=== PATIENT | male | born 1995 | race Caucasian/White ===

== ENCOUNTER 2023-07-21 05:28 | Emergency (ER) | payer BC ==
[~2023-07-21] VITALS: Ht 182.9 cm; Wt 84.0 kg
[2023-07-21 05:45] VITALS: PULSE 107
[2023-07-21 05:47] VITALS: BP 131/78; RESP 18; TEMP 97.6; O2SAT 100
[2023-07-21] MEDS ORDERED: GUAI600T26 MT (09:57)
[2023-07-21] MEDS ORDERED: IBUP-2029 MT (09:57)
[2023-07-21] MEDS ORDERED: BECL10.6 INH (09:57)
[2023-07-21] MEDS: IBUPROFEN 800MG TABLET PO ONE (10:17)
== END 2023-07-21 10:22 | disposition home or self-care (01) ==
LOC: ER 05:28
DX: J02.9 Acute pharyngitis, unspecified (principal); Z20.822 Contact with and (suspected) exposure to COVID-19
CPT/HCPCS: 71045; 87070; 87426; 87430; 87804; 99284